=== PATIENT | female | born 1995 | race Two or more races ===

== ENCOUNTER 2020-12-19 08:10 | Inpatient (IN) | payer OTHER ==
[~2020-12-19] VITALS: Ht 162.6 cm; Wt 52.6 kg
[2020-12-19] MEDS ORDERED: PRENATAL + DHA1 EAC1 PO (08:31)
[2020-12-19] MEDS ORDERED: FOLIC ACID0.8 M1 (08:31)
== END 2020-12-21 08:29 | disposition home or self-care (01) | DRG 833 ==
LOC: ER 08:10 → OB/GYN 12-20 11:14
PROVIDERS: ADMIT Obstetrics & Gynecology; ATTEND Obstetrics & Gynecology
PROC: 30233N1 Transfusion of Nonautologous Red Blood Cells into Peripheral Vein, Percutaneous Approach (ICD-10-PCS; principal; 2020-12-20)
PROC: 4A1HXFZ Monitoring of Products of Conception, Cardiac Rhythm, External Approach (ICD-10-PCS; 2020-12-20)
DX: O99.013 Anemia complicating pregnancy, third trimester (principal); D64.9 Anemia, unspecified; O30.003 Twin pregnancy, unspecified number of placenta and unspecified number of amniotic sacs, third trimester; Z3A.29 29 weeks gestation of pregnancy